=== PATIENT | female | born 1960 ===

== ENCOUNTER 2017-11-13 20:51 | Emergency (ER) | payer OTHER | END 2017-11-13 23:46 | disposition home or self-care (01) | LOC: FTE 20:51 | DX: S80.861A Insect bite (nonvenomous), right lower leg, initial encounter (principal); S80.862A Insect bite (nonvenomous), left lower leg, initial encounter; W57.XXXA Bitten or stung by nonvenomous insect and other nonvenomous arthropods, initial encounter; Y92.9 Unspecified place or not applicable | CPT/HCPCS: 99283; Z7502 ==